=== PATIENT | female | born 1980 | race Asian ===

== ENCOUNTER → 2018-05-02 | Outpatient (CLI) | payer OTHER | LOC: M RAD 08:11 | DX: Z36.89 Encounter for other specified antenatal screening (principal); O13.9 Gestational [pregnancy-induced] hypertension without significant proteinuria, unspecified trimester; Z3A.35 35 weeks gestation of pregnancy | CPT/HCPCS: 76820 ==

== ENCOUNTER → 2018-05-13 | Outpatient (CLI) | payer OTHER | LOC: M RAD 13:36 | DX: O13.3 Gestational [pregnancy-induced] hypertension without significant proteinuria, third trimester (principal); O09.523 Supervision of elderly multigravida, third trimester; Z3A.37 37 weeks gestation of pregnancy | CPT/HCPCS: 76816 ==

== ENCOUNTER 2018-05-17 18:49 | Inpatient (IN) | payer OTHER ==
[2018-05-17] MEDS: LACTATED RINGER'S 1000 ML IV (19:35)
[2018-05-17] MEDS: LR 1,000 ML IV (19:35)
[2018-05-17 20:14] LABS: HEMATOCRIT 35.9 % (36.0-47.0); HEMOGLOBIN 12.2 g/dl (12.0-15.5); MEAN CORPUSCULAR HEMOGLOBIN 29.3 pg (27.0-33.0); MEAN CORPUSCULAR VOLUME 86.3 fl (80.0-96.0); PLATELET COUNT, AUTOMATED 297 10^3/uL (150-450); RED BLOOD COUNT 4.16 10^6/uL (4.00-5.40); RED CELL DISTRIBUTION WIDTH 13.6 % (11.5-14.5); WHITE BLOOD COUNT 8.6 10^3/uL (4.0-10.0)
[2018-05-17] MEDS: miSOPROStol 25 MCG 1/4 TAB (S0191) PO (20:30)
[2018-05-17] MEDS ORDERED: miSOPROStol 50 MCG 1/2 TAB (S0191) As Ordered (20:32)
[2018-05-17 20:49] LABS: ALT/SGPT 11 U/L (12-78); AST/SGOT 18 U/L (7-37); BILIRUBIN,TOTAL 0.1 MG/DL (0.2-1.0); CREATININE FOR GFR 0.53 MG/DL (0.55-1.30); GLOMERULAR FILTRATION RATE > 60.0 (>60); LDH LACTATE DEHYDROGENASE 178 U/L (84-246); URIC ACID 6.9 MG/DL (2.6-6.0)
[2018-05-18] MEDS: miSOPROStol 50 MCG 1/2 TAB (S0191) PO ×2 (00:37→04:30)
[2018-05-18] MEDS: LR 1,000 ML IV ×3 (03:35→06:33)
[2018-05-18] MEDS: OXYTOCIN DRIP 30 UNITS in APPROPRIATE DILUENT 1 EA IV ×2 (09:41→16:00)
[2018-05-18] MEDS ORDERED: BUTORPHANOL 2 MG/ML INJ (J0595) IV (10:00)
[2018-05-18] MEDS: BUTORPHANOL 2 MG/ML INJ (J0595) IV (10:16)
[2018-05-18] MEDS: PROMETHAZINE INJ 25 MG/ML VIAL (J2550) IV (10:16)
[2018-05-18] MEDS: miSOPROStol 200 MCG TAB (S0191) PR ×2 (15:17→15:45)
[2018-05-18] MEDS ORDERED: METHYLERGONOVINE MALEATE 0.2 MG TAB PO (15:45)
[2018-05-18] MEDS ORDERED: DOCUSATE SODIUM 100 MG CAP PO (15:45)
[2018-05-18] MEDS ORDERED: DIBUCAINE 1% OINTMENT 30GM TOP (15:45)
[2018-05-18] MEDS: RHOGAM 300 MCG (1500 IU) INJ (J2790) IM (17:32)
[2018-05-18] MEDS: MEASLES,MUMPS,RUBELLA VACCINE INJ (MMR-II) (90707) SC (17:32)
[2018-05-19] MEDS: IBUPROFEN 800 MG TAB PO (02:40)
[2018-05-19] MEDS: ACETAMINOPHEN 500 MG TAB PO ×2 (03:33→13:38)
[2018-05-19] MEDS: PRENATAL VITAMINS CHEWABLE TABLET PO (08:47)
[2018-05-19] MEDS ORDERED: miSOPROStol 200 MCG TAB (S0191) As Ordered (09:29)
== END 2018-05-19 15:25 | disposition home or self-care (01) | DRG 807 ==
LOC: M LDI 18:49 → M OBS 05-18 17:49
PROC: 3E033VJ Introduction of Other Hormone into Peripheral Vein, Percutaneous Approach (ICD-10-PCS; 2018-05-17)
PROC: 10E0XZZ Delivery of Products of Conception, External Approach (ICD-10-PCS; principal; 2018-05-18)
DX: O14.94 Unspecified pre-eclampsia, complicating childbirth (principal); Z37.0 Single live birth; Z3A.37 37 weeks gestation of pregnancy; O09.523 Supervision of elderly multigravida, third trimester; E66.9 Obesity, unspecified; O99.214 Obesity complicating childbirth; Z68.33 Body mass index [BMI] 33.0-33.9, adult; O69.82X0 Labor and delivery complicated by other cord entanglement, without compression, not applicable or unspecified

== ENCOUNTER → 2019-03-20 | Outpatient (REF) | payer OTHER ==
[~2019-03-20] MED LIST: ASPI81TA21 PO; COLA100C5 PO; DIBU10OI TOP; IBUP-1114 PO; MAPA500T2 PO; PRENTAB9 PO; ZYRTTAB8 PO
[2019-03-20 22:12] LABS: CHLAMYDIA DNA AMPLIFICATION NEGATIVE (NEGATIVE); GC DNA AMPLIFICATION NEGATIVE (NEGATIVE)
== END ==
LOC: M SFHCLERA 13:54
PROVIDERS: ATTEND Physician Assistant
DX: N89.8 Other specified noninflammatory disorders of vagina (principal)
CPT/HCPCS: 81002; 81025; 87661; G0463

== ENCOUNTER → 2019-06-25 | Outpatient (CLI) | payer OTHER ==
--- NOTE | 2019-06-25 11:33 | REP ---
Right foot: Four views. History: Injury of the right foot. Stubbing injury to the fourth toe. Findings: Four views of the right foot demonstrate Achilles and plantar calcaneal spurring. There is an os naviculare and an os peroneum. There is an obliquely oriented nondisplaced fracture through the proximal phalanx of the fourth toe visible on oblique radiograph. No other fracture is seen. Impression: Nondisplaced obliquely oriented fracture proximal phalanx right fourth toe. Electronically Signed by Terry Hays MD 06/25/2019 11:25 A
== END ==
LOC: M LRY 10:39
PROVIDERS: ATTEND Nurse Practitioner Family
DX: S92.514A Nondisplaced fracture of proximal phalanx of right lesser toe(s), initial encounter for closed fracture (principal); X58.XXXA Exposure to other specified factors, initial encounter; Y92.89 Other specified places as the place of occurrence of the external cause